=== PATIENT | female | born 1980 | race Hispanic/Latino ===

== ENCOUNTER 2017-10-23 21:10 | Emergency (ER) | payer SELFPAY, OTHER ==
[2017-10-23 21:45] LABS: Pregnancy Test - Urine (BHCG) POSITIVE (Negative); Pregu Control Background? CLEAR/WHITE (CLR/WHITE); Pregu Control Bar Appear? YES (CONTROL BAR)
[2017-10-23 21:46] LABS: Bilirubin Negative (Negative); Blood, Urine Negative (Negative); Clarity CLOUDY (Clear); Glucose, Urine (Dipstick) Negative (Negative); Leukocyte Moderate (Negative); Nitrite Negative (Negative); Protein, Urine (Dipstick) Negative (Neg-Trace); Specific Gravity, Urine 1.021 (1.002-1.036); pH, Urine 7.5 (5.0-9.0)
[2017-10-23 21:47] LABS: Specific Gravity 1.021 (1.002-1.036)
[2017-10-23 21:48] LABS: Bacteria/HPF 4+ HPF (None Seen); Hyaline Casts/LPF 0-3 HYALINE CAST LPF (0-3 Hyaline); Squamous Epithelial 0-3 HPF (0-3)
--- NOTE | 2017-10-23 23:39 | ULT ---
PELVIC ULTRASOUND: 10/23/17 HISTORY: Confirm IUP. Urinary tract infection. Cramping. No bleeding. COMPARISON: None. TECHNIQUE: Transabdominal imaging of the gravid uterus is performed. Ovaries are interrogated with tejada scale, c olor flow, doppler imaging with spectral waveform analysis. FINDINGS: The uterus is identified measuring 4.9 x 7.6 x 7.0 cm. Within the endometrium, is a gestational sac, yolk sac and pole. [place]-rump length is 0.85 cm corresponding to a gestational age of 6 weeks, 6 days. heart tones with a rate of 123 beats per minute. Left and right ovary have a normal echotexture. The left ovary measures 3.2 x 1.3 x 1.3 cm. Right ova ry measures 3.1 x 1.4 x 2.3 cm. No free fluid. OVARIAN DOPPLER: Vascular flow to both ovaries. IMPRESSION: Single uterine gestation with heart tones. Gestational age by crown-rump length is 6 weeks, 6 d ays. POS: [facility]
[2017-10-24] MEDS ORDERED: Azithromycin 250 MG TAB ONE (00:32)
[2017-10-24] MEDS ORDERED: cefTRIAXone\\ROCEPHIN 250 MG VIAL ONE (00:32)
[2017-10-24] MEDS ORDERED: Lidocaine 1% PF 5 ML VIAL ONE (00:32)
[2017-10-25 22:54] LABS: Chlamydia by PCR Not Detected (NotDetected); GC by PCR Not Detected (NotDetected)
== END 2017-10-24 01:07 | disposition home or self-care (01) ==
LOC: ERS 21:10
DX: O23.511 Infections of cervix in pregnancy, first trimester (principal); Z3A.01 Less than 8 weeks gestation of pregnancy
CPT/HCPCS: 36415; 76856; 81003; 81015; 81025; 84702; 87077; 87086; 87186; 87480; 87491; 87510; 87591; 87660; 96372; J0696; J2001

== ENCOUNTER 2018-05-22 10:27 | Day surgery (SDC) | payer SELFPAY ==
[2018-05-22 11:35] VITALS: BMI 28.9
[2018-05-22 11:36] LABS: Amnisure Test No Membranes Rupture (No Rupture)
[2018-05-22 11:37] LABS: Amnisure Internal Control QC ACCEPTABLE (ACCEPTABLE)
--- NOTE | 2018-05-22 12:28 | PDOC.LDHP ---
Labor and Delivery H&P Chief complaint: loss of fluid HPI: 38 year old at 37.0 wks presents with leaking of fluid since 09:00 AM. Patient states there was no gush of fluid, it was more of a gradual fluid loss. She is uncertain whether she has ruptured, so she came in today to be evaluated. She does endorse contractions that are irregular, but when present occur every 10-15 minutes. Contractions are rated as a 3/10. Patient denies any vaginal bleeding, vaginal discharge, or dysuria. ROS: General: Denies fever or chills HEENT: Denies headaches or scotoma Resp: Denies shortness of breath or cough Card: Denies chest pain or palpitations : Denies dysuria. Endorses urinary frequency GI: Denies constipation or diarrhea Current gestational age (weeks): 37 Due date: 06/12/18 Grav: 4 Para: 2 OB History Details: Hx of pre-eclampsia in prior on ASA, Hx of low lying placenta in this which has resolved Current complications: none Abnormal US findings: Yes (Low lying placenta which has resolved) Current medications: other (ASA) Previous surgical history: none Social history: none - Physical Exam Vital signs reviewed and normal: yes General: NAD, resting Heart: RRR Lungs: nonlabored breathing Abdomen: gravid Extremeties: no edema FHT: category 1, variability present [place] contractions every: Irregular - Vaginal Exam cm dilated: 2 Effacement: 50% Station: -3 - Assessment 38 year old at 37 wks with [place] of 06/12/2018 presents with leaking of fluid 1. Possible SROM, ruled out - Aminsure negative - Sterile speculum exam did not show any pooling of fluid, valsalva negative - Cervical check /-3, thick - NST Category I 2. Hx of Pre-E in prior - Currently on ASA therapy Dispo: Discharge home with return precautions <Karen Mccrary - Last Filed: 05/22/18 12:29> <Nina Segundo - Last Filed: 05/22/18 12:36> Allergies/Adverse Reactions: Allergies Allergy/AdvReac Type Severity Reaction Status Date / Time No Known Allergies Allergy Unverified 05/22/18 11:24 Attending Addendum - Attending Addendum Date/Time: 05/22/18 1236 I personally evaluated the patient and discussed the management with Dr. Mccrary. I agree with the History, Examination, Assessment and Plan documented above. <Nina Segundo - Last Filed: 05/22/18 12:36>
== END 2018-05-22 12:30 | disposition home or self-care (01) ==
LOC: L&D/OP 10:27
DX: Z03.71 Encounter for suspected problem with amniotic cavity and membrane ruled out (principal); Z79.82 Long term (current) use of aspirin; Z3A.37 37 weeks gestation of pregnancy
CPT/HCPCS: 84112; 87480; 87510; 87660; 99285

== ENCOUNTER 2018-05-23 01:21 | Day surgery (SDC) | payer SELFPAY ==
[2018-05-23 01:47] VITALS: BP 131/60; TEMP 98.1; BMI 28.9
--- NOTE | 2018-05-23 03:18 | PDOC.FPROB ---
FMR OB H&P: HPI - History of Present Illness Chief Complaint: contractions, vaginal pressure Indentification: History of Present Illness: 38 yo here with reported increased contractions and vaginal pressure. Started yesterday afternoon. Came to L&D yesterday for suspected loss of fluid. Was 3/-3 and amnisure negative. Was sent home and returned with aforementioned complaints. Denies LOF, VB. Endorses FM. No other complaints at this time. Primary Care Physician: Dr. Polly Flores FMR OB H&P: Current - Care : 4 Para: 2 Gestational age: 37.1 Due date: 06/12/18 Dating Criteria: 6.7wk US - OB Labs Blood type: O RH: positive Antibody Screen: negative HIV: negative RPR: negative HepBsAg: negative Rubella: immune Quad screen: unknown Urine drug screen: not done Gonorrhea: negative Chlamydia: negative - Anatomy Survey Anatomy survey: low lying placenta seen on 2nd trimester anatomy scan FMR OB H&P: History - Past Medical History PMH: none - OB History OB History: 1. 2008: preE with IOL, 2. 2013: Forceps assisted 3. 2017: SAB - Surgical History Sx History: Denies - Social History Social History: Denies tobacco, etoh, drug - Family History Family History: HTN, DM FMR OB H&P: Medications - Current Home Medications: Medication Instructions Recorded Confirmed Type Aspirin [Aspir-Low] 81 mg PO DAILY 05/22/18 05/23/18 History Allergies/Adverse Reactions: Allergies Allergy/AdvReac Type Severity Reaction Status Date / Time No Known Allergies Allergy Verified 05/23/18 01:47 FMR OB H&P: ROS - Review of Systems Eyes: denies: vision changes, double vision ENT: denies: nasal congestion, rhinorrhea, sore throat Cardiovascular: denies: chest pain, edema Respiratory: denies: cough, congestion, shortness of breath Gastrointestinal: reports: abdominal pain. denies: indigestion, bloating, nausea, vomiting Genitourinary (Female): reports: vaginal pressure. denies: dysuria, vaginal pain, vaginal bleeding Musculoskeletal: denies: stiffness, tenderness Neurologic: reports: numbness Integumentary: reports: itching, lesions Hematologic/Lymphatic: denies: prolonged or excessive bleeding Psychological: denies: depression, anxiety FMR OB H&P: Vital Signs - Maternal Vital signs: Vital Signs - First Documented Temp Pulse Resp BP Pulse Ox 98.1 F 69 18 131/60 99 05/23/18 01:41 05/23/18 01:41 05/23/18 01:41 05/23/18 01:41 05/23/18 01:41 - Heart Tones Baseline: 125 Variability: moderate Acceleration: present Category: category 1 FMR OB H&P: Physical Exam - Physical Exam General: NAD, awake, alert and oriented HEENT: normocephalic and atraumatic, PERRLA, EOMI Neck: supple, FROM Heart: RRR, normal S1/S2 General: CTAB, no respiratory distress, good air movement Abdomen: gravid Musculoskeletal: pulses present, FROM in all four extremities Skin: no rash, good tugor, capillary refill <2 seconds, no jaundice Lymphatic: no unusual bruising or bleeding, no purpura, no petechia - Pelvic Exam Vulva: normal hair distribution SVE: 50/-2 Felder score: 2 Membranes: intact FMR OB H&P: A/P - Problem List (1) Intrauterine normal Status: Acute Code(s): Z34.90 - ENCNTR FOR SUPRVSN OF NORMAL , UNSP, UNSP TRIMESTER (2) History of pre-eclampsia in prior , currently Status: Acute Code(s): O09.299 - SUPRVSN OF PREG W POOR REPRODCTV OR OBSTET HISTORY, UNSP TRI Disposition: 38 yo [id number] here for increased contractions and vaginal pressrue 1. sIUP, labor rule out -no prior h/o of PTL -SVE at 250/-3 -FHT Cat I, delicia every 5-7 min -will give po water and continue EFM -monitor for spacing out of contractions. will recheck in 2 hours. if CTX more spaced out and no cervical change made can consider sending out to home 2. H/o PreEclampsia -taking aspirin due to prior hx discussed with dr. bangura Discussion: Date/Time: 05/23/18316 This H&P was discussed with [] and [] who agree with the above documentation and plan. Attending Addendum - Attending Addendum Date/Time: 05/23/18 7229 I personally evaluated the patient and discussed the management with Dr. Salcedo I agree with the History, Examination, Assessment and Plan documented above with any addition or exceptions noted below. Pt given 6mg morphine IM for comfort. She was discharged comfortable with term precautions.
[2018-05-23] MEDS ORDERED: Morphine 10 MG/ML VIAL SLOW IVP PRN (04:37)
[2018-05-23] MEDS ORDERED: Morphine 10 MG/ML VIAL ONE (04:38)
[2018-05-23] MEDS ORDERED: Morphine 10 MG/ML VIAL IM SCH (04:45)
--- NOTE | 2018-05-23 08:03 | PDOC.EVN ---
Event Note - Event Note Event Note: Patient was still experiencing pain with contractions so was given morphine 0.6 x1. Continued to monitor and CTX spaced out to q8-9 minutes. Upon discharge patient was vitally stable and expressed feeling comfortable with going home. Was given labor precautions. <Lupis Salcedo - Last Filed: 05/23/18 08:02> Attending Addendum - Attending Addendum Date/Time: 05/25/18 0845 I personally evaluated the patient and discussed the management with Dr. Salcedo I agree with the History, Examination, Assessment and Plan documented above with any addition or exceptions noted below. Pt was given 6mg of morphine for maternal comfort. Pt discharged home with no evidence of active labor. Fetus with a CAt 1 tracing. <Refugio Patel - Last Filed: 05/25/18 08:46>
== END 2018-05-23 06:20 | disposition home or self-care (01) ==
LOC: L&D/OP 01:21
PROVIDERS: ATTEND Obstetrics & Gynecology
DX: O47.1 False labor at or after 37 completed weeks of gestation (principal); Z3A.37 37 weeks gestation of pregnancy
CPT/HCPCS: 96372; 99283; J2270

== ENCOUNTER 2018-05-25 15:22 | Inpatient (IN) | payer MEDICAID, SELFPAY ==
[2018-05-25 16:02] VITALS: BMI 28.9
--- NOTE | 2018-05-25 17:00 | PDOC.LDHP ---
Labor and Delivery H&P Chief complaint: contractions, loss of fluid HPI: 38 yo at 37.3w by LMP/6.6w sono here with contractions since Wednesday. She states that she would have them for a couple of hours then they would go away. Now they are consistently every 10 minutes. She also reports she was here Wednesday and had leakage of fluid, was told amnisure was negative and discharged. She is feeling baby move, denies vaginal bleeding but does think she passed mucus plug last night with brown discharge. Current gestational age (weeks): 37 (37.3) Due date: 06/12/18 Dating criteria: last menstrual period, first trimester ultrasound Grav: 4 Para: 2 (1112) OB History Details: H/o preE with first , on ASA this AMA - declined genetic screening H/o PTD 2/2 induction for preE, no 17-ohp indicated E. coli UTI s/p PANCHO Varicose veins Current complications: none Abnormal US findings: No (marginal early in , resolved) Current medications: pre- vitamins, other (ASA) Previous surgical history: none Social history: none - Physical Exam Vital signs reviewed and normal: yes General: resting, breathing through contractions Heart: RRR Lungs: nonlabored breathing Abdomen: gravid Extremeties: trace edema (BL to junior) FHT: category 1 - Vaginal Exam cm dilated: 3 Effacement: 75% Station: -3 - OB Labs Blood type: O RH: positive Antibody Screen: negative HIV: negative RPR: negative HEPSAg: negative 1 hour GCT: negative GBS: negative Rubella: immune - Assessment Contractions - Plan Plan: observation in L&D -: 38 yo at 37.3 by LMP/6.6w sono here with contractions and possible ROM 1. tIUP with ctx/possible SROM - Bedside sono revealed 1 pocket of approx 4 cm but no other good fluid pocket - Will check amnisure and BPP with BRENDA - Recheck in 2 hours - PO hydration - FHT 150/mod/+accels/rare variable or late decel 2. AMA - Declined genetic screening 3. H/o preE - On ASA this - No symptoms, trace edema BL and has had rare headaches on and off that self-resolve - BP 130s/80s, will continue to monitor 4. H/o delivery - Induced for preE, no 17-ohp indicated 5. Fam hx HTN, kidney stones, prostate cancer 6. E. coli UTI this preg - s/p PANCHO 7. Pap NILM, HPV neg <Polly Flores - Last Filed: 05/25/18 20:35> <Refugio Patel - Last Filed: 05/26/18 08:02> Allergies/Adverse Reactions: Allergies Allergy/AdvReac Type Severity Reaction Status Date / Time No Known Allergies Allergy Verified 05/23/18 01:47 Attending Addendum - Attending Addendum Date/Time: 05/26/18 0802 I personally evaluated the patient and discussed the management with Dr. Flores I agree with the History, Examination, Assessment and Plan documented above with any addition or exceptions noted below. <Refugio Patel - Last Filed: 05/26/18 08:02>
[2018-05-25 17:39] LABS: Amnisure Test No Membranes Rupture (No Rupture)
[2018-05-25 17:40] LABS: Amnisure Internal Control QC ACCEPTABLE (ACCEPTABLE)
[2018-05-25] MEDS ORDERED: Ondansetron HCl/PF 4 MG/2 ML Vial IVP PRN (18:48)
[2018-05-25] MEDS ORDERED: Promethazine HCl 25 MG/ML VIAL IM PRN (18:48)
[2018-05-25] MEDS ORDERED: Ibuprofen 800 MG TAB PO PRN (18:48)
[2018-05-25] MEDS ORDERED: Lidocaine 1% (PF) 30 ML VIAL SC PRN (18:48)
[2018-05-25] MEDS ORDERED: NS / Oxytocin 40 units/1000ml 1,000 ML IV PRN (18:48)
--- NOTE | 2018-05-25 18:55 | ULT ---
SONOGRAPHIC BIOPHYSICAL PROFILE EXAM: 05/25/18 HISTORY: Third trimester . Fluid leak. FINDINGS: Good tone, breathing movement, and gross movements were demonstrated. Amniotic fluid index is 3 .8. No pockets of 2 cm fluid are visible. IMPRESSION: Oligohydramnios. BRENDA 3.8. Sonographic biophysical profile score is 6/8. POS: [facility]
[2018-05-25] MEDS ORDERED: NS w/ Oxytocin 10 units 500 ML IV SCH ×2 (19:00)
[2018-05-25 19:12] LABS: Hemoglobin 12.4 g/dL (12.0-16.0); Mean Corpuscular HGB CONC 34.8 g/dL (32.0-36.0); Mean Corpuscular Hemoglobin 31.2 pg (27.0-31.0); Mean Corpuscular Volume 89.5 fL (78.0-98.0); Mean Platelet Volume 7.8 fL (7.4-10.4); Platelet Count 215 thou/uL (130-400); RBC Distribution Width 13.1 % (11.5-14.5); Red Blood Cell (RBC) Count 3.98 mill/uL (4.20-5.40)
[2018-05-25 19:52] LABS: HBSAg Index 0.22 S/CO (0-0.99); Hep B Surf Ag Non-Reactive S/CO (NonReactive); Syphilis Antibody Nonreactive (Nonreactive); Syphilis Antibody Index 0.05 S/CO (<1.00 Non-Reactive)
--- NOTE | 2018-05-25 20:08 | PDOC.LDPN ---
Labor & Delivery Progress Note - Subjective Subjective: comfortable - Objective Vital signs reviewed and normal: yes General: resting Uterine fundus: non tender Dilation: 3 Effacement: 50% (60) Station: -2 FHT: category 1 (130/mod/+accel/rare variable) [place] contractions every: 8 - Assessment (1) Oligohydramnios antepartum Code(s): O41.00X0 - OLIGOHYDRAMNIOS, UNSP TRIMESTER, NOT APPLICABLE OR UNSP Current Visit: Yes Status: Acute (2) Term Code(s): Z34.80 - ENCOUNTER FOR SUPRVSN OF NORMAL , UNSP TRIMESTER Current Visit: Yes Status: Acute (3) History of pre-eclampsia in prior , currently Code(s): O09.299 - SUPRVSN OF PREG W POOR REPRODCTV OR OBSTET HISTORY, UNSP TRI Current Visit: No Status: Acute Plan: pitocin for augmentation -: 38 yo at 37.3 by LMP/6.6w sono here with oligohydramnios and occasional variable/late decelerations 1. term IUP with oligohydramnios - will admit for contraction stress test and induction for non-reassuring NST and overall BPP of 6/10 - BRENDA 3.8 - Felder score 6, favorable 2. AMA - Declined genetic screening 3. H/o preE - On ASA this - No symptoms, trace edema BL and has had rare headaches on and off that self-resolve - BP 130s/80s, will continue to monitor 4. H/o delivery - Induced for preE, no 17-ohp indicated 5. Fam hx HTN, kidney stones, prostate cancer 6. E. coli UTI this preg - s/p PANCHO 7. Pap NILM, HPV neg
[2018-05-25] MEDS: Lactated Ringer's 1,000 ML IV SCH (20:40)
--- NOTE | 2018-05-25 22:05 | PDOC.LDPN ---
Labor & Delivery Progress Note - Subjective Subjective: painful contractions - Objective Vital signs reviewed and normal: yes General: breathing through contractions Uterine fundus: non tender Dilation: 3 Effacement: 50% Station: -3 FHT: category 2 (140/moderate/+ accels/occasional late decels) [place] contractions every: 2-4min - Assessment (1) Term Code(s): Z34.80 - ENCOUNTER FOR SUPRVSN OF NORMAL , UNSP TRIMESTER Current Visit: Yes Status: Acute (2) Oligohydramnios antepartum Code(s): O41.00X0 - OLIGOHYDRAMNIOS, UNSP TRIMESTER, NOT APPLICABLE OR UNSP Current Visit: Yes Status: Acute (3) History of pre-eclampsia in prior , currently Code(s): O09.299 - SUPRVSN OF PREG W POOR REPRODCTV OR OBSTET HISTORY, UNSP TRI Current Visit: No Status: Acute (4) Intrauterine normal Code(s): Z34.90 - ENCNTR FOR SUPRVSN OF NORMAL , UNSP, UNSP TRIMESTER Current Visit: No Status: Acute Plan: continue plan of care, pitocin for augmentation -: 38 yo at 37.3 by LMP/6.6w sono here with oligohydramnios and occasional variable/late decelerations 1. Induction for term IUP with oligohydramnios - Contraction stress test tolerated at this time, will continue induction/ augmentation with pitocin for non-reassuring NST and overall BPP of 6/10 - BRENDA 3.8 - Felder score 6, favorable - GBS neg - Marginal anterior placenta early in , resolved on most recent sono 2. AMA - Declined genetic screening 3. H/o preE - On ASA this - No symptoms, trace edema BL and has had rare headaches on and off that self-resolve - BP wnl, will continue to monitor 4. H/o delivery - Induced for preE, no 17-ohp indicated 5. Fam hx HTN, kidney stones, prostate cancer 6. E. coli UTI this preg - s/p PANCHO 7. Pap NILM, HPV neg
[2018-05-26] MEDS ORDERED: DISCONTINUE ALL PREVIOUS NARCOTICS FS SCH (00:15)
[2018-05-26] MEDS: Lactated Ringer's 1,000 ML IV SCH ×2 (00:30→11:29)
[2018-05-26] MEDS ORDERED: Fentanyl 100 MCG/2 ML VIAL ONE (00:40)
[2018-05-26] MEDS: Bupivacaine 0.5% 20 ML, fentaNYL Citrate/PF 400 MCG in Sodium Chloride 0.9% 72 ML EPIDURAL SCH ×2 (01:07→07:28)
[2018-05-26] MEDS ORDERED: Lactated Ringer's 500 ML IV PRN (01:28)
[2018-05-26] MEDS ORDERED: Ondansetron HCl/PF 4 MG/2 ML Vial IVP PRN ×2 (01:28→13:39)
[2018-05-26] MEDS ORDERED: diphenhydrAMINE 50 MG/ML VIAL IVP PRN (01:28)
[2018-05-26] MEDS ORDERED: Hydrocerin (Eucerin) Cream 120 gm Jar TOP PRN (01:28)
[2018-05-26] MEDS ORDERED: ePHEDrine/0.9% NaCl/PF SYRINGE 50 mg/10 ml SLOW IVP PRN (01:28)
[2018-05-26] MEDS ORDERED: Naloxone HCl 0.4 mg/ml Vial IVP PRN ×2 (01:28)
[2018-05-26] MEDS ORDERED: Promethazine HCl 25 MG/ML VIAL IM PRN (01:28)
[2018-05-26] MEDS ORDERED: Communication Order-Pharmacy FS SCH (01:30)
[2018-05-26] MEDS ORDERED: fentaNYL Citrate/PF 400 MCG, Bupivacaine 0.5% 20 ML in Sodium Chloride 0.9% 72 ML EPIDURAL SCH (01:30)
--- NOTE | 2018-05-26 02:24 | PDOC.LDPN ---
Labor & Delivery Progress Note - Subjective Subjective: comfortable - Objective Vital signs reviewed and normal: yes General: resting Uterine fundus: non tender Dilation: 4 Effacement: 75% (70) Station: -3 FHT: category 2 (130/mod/+rare accel/+rare late decel) [place] contractions every: 2 minutes - Assessment (1) Oligohydramnios antepartum Code(s): O41.00X0 - OLIGOHYDRAMNIOS, UNSP TRIMESTER, NOT APPLICABLE OR UNSP Current Visit: Yes Status: Acute (2) Term Code(s): Z34.80 - ENCOUNTER FOR SUPRVSN OF NORMAL , UNSP TRIMESTER Current Visit: Yes Status: Acute (3) History of pre-eclampsia in prior , currently Code(s): O09.299 - SUPRVSN OF PREG W POOR REPRODCTV OR OBSTET HISTORY, UNSP TRI Current Visit: No Status: Acute Plan: continue plan of care, pitocin for augmentation -: 38 yo at 37.4 by LMP/6.6w sono here with oligohydramnios and occasional variable/late decelerations 1. Induction for term IUP with oligohydramnios (BRENDA 3.8) - Contraction stress test tolerated, will continue induction/augmentation with pitocin for non-reassuring NST and overall BPP of 6/10 - Making cervical change, pitocin at 6 - Marginal anterior placenta early in , resolved on most recent sono - Comfortable with epidural - GBS neg 2. AMA - Declined genetic screening 3. H/o preE - On ASA this - No symptoms, trace edema BL and has had rare headaches on and off during that self-resolve - BP wnl, will continue to monitor 4. H/o delivery - Induced for preE, no 17-ohp indicated 5. Fam hx HTN, kidney stones, prostate cancer 6. E. coli UTI this preg - s/p PANCHO 7. Pap NILM, HPV neg
[2018-05-26] MEDS: Acetaminophen 325 MG TAB PO PRN ×3 (02:56→16:14)
--- NOTE | 2018-05-26 05:59 | PDOC.LDPN ---
Labor & Delivery Progress Note - Subjective Subjective: comfortable - Objective Vital signs reviewed and normal: yes General: NAD, resting Uterine fundus: non tender Dilation: 4 Effacement: 75% Station: -2 FHT: category 1, variable decelerations (early) [place] contractions every: irregular - Assessment (1) Oligohydramnios antepartum Code(s): O41.00X0 - OLIGOHYDRAMNIOS, UNSP TRIMESTER, NOT APPLICABLE OR UNSP Current Visit: Yes Status: Acute (2) Term Code(s): Z34.80 - ENCOUNTER FOR SUPRVSN OF NORMAL , UNSP TRIMESTER Current Visit: Yes Status: Acute (3) History of pre-eclampsia in prior , currently Code(s): O09.299 - SUPRVSN OF PREG W POOR REPRODCTV OR OBSTET HISTORY, UNSP TRI Current Visit: No Status: Acute (4) Intrauterine normal Code(s): Z34.90 - ENCNTR FOR SUPRVSN OF NORMAL , UNSP, UNSP TRIMESTER Current Visit: No Status: Acute Plan: continue plan of care -: 38 yo at 37.4 by LMP/6.6w sono here with oligohydramnios and occasional variable/late decelerations 1. Induction for term IUP with oligohydramnios (BRENDA 3.8) - Contraction stress test tolerated, will continue induction/augmentation with pitocin for non-reassuring NST and overall BPP of 6/10 - Has not made cervical change at last 2 checks, pitocin at 8 - Marginal anterior placenta early in , resolved on most recent sono - Comfortable with epidural - GBS neg 2. AMA - Declined genetic screening 3. H/o preE - On ASA this - No symptoms, trace edema BL and has had rare headaches on and off during that self-resolve - BP wnl, will continue to monitor 4. H/o delivery - Induced for preE, no 17-ohp indicated 5. Fam hx HTN, kidney stones, prostate cancer 6. E. coli UTI this preg - s/p PANCHO 7. Pap NILM, HPV neg <Jaiden Paredes - Last Filed: 05/26/18 05:55> Attending Addendum - Attending Addendum Date/Time: 05/26/18 0819 I personally evaluated the patient and discussed the management with Dr. Paredes I agree with the History, Examination, Assessment and Plan documented above with any addition or exceptions noted below. <Miguel Luna - Last Filed: 05/26/18 08:19>
[2018-05-26] MEDS ORDERED: Dextrose 5%-Lactated Ringers 1,000 ML IV SCH (07:30)
--- NOTE | 2018-05-26 07:48 | PRG ---
DATE OF SERVICE: 05/26/2018 HISTORY OF PRESENT ILLNESS: The patient is a 38-year-old G4, P2 female with an intrauterine pregnanc y at 37 weeks and 4 days, who was admitted for oligohydramnios and category 2 tracing for induction o f labor. The patient tolerated a contraction stress test and Pitocin was instituted. At that time, she had a cervical exam of 360, -3 station. Over the last 18 hours or so the patient has had a slow progress. She is currently 4 cm, 70% and -2 station last checked by myself at 5. The patient was OT to OP presentation confirmed by bedside ultrasound with a very anterior cervix. heart tracing has been category 2 with some periods of category 1 and most recently has developed late appearing d ecelerations in the last 45 minutes or so. Pitocin has been turned off and the patient is being rest ed for a couple hours. VITAL SIGNS: Blood pressure 102/53, heart rate of 51, temperature 98.2. GENERAL: The patient is comfortable with an epidural in place.
--- NOTE | 2018-05-26 09:31 | PDOC.LDPN ---
Labor & Delivery Progress Note - Subjective Subjective: comfortable - Objective Vital signs reviewed and normal: yes General: NAD, resting Uterine fundus: non tender SVE: 9:10 AM Dilation: 6 Effacement: 75% (80) Station: -1 FHT: category 1 [place] contractions every: Irregular Procedures: FSE, UPC IUPC placed: yes FSE placed: yes - Assessment (1) Oligohydramnios antepartum Code(s): O41.00X0 - OLIGOHYDRAMNIOS, UNSP TRIMESTER, NOT APPLICABLE OR UNSP Current Visit: Yes Status: Acute (2) Term Code(s): Z34.80 - ENCOUNTER FOR SUPRVSN OF NORMAL , UNSP TRIMESTER Current Visit: Yes Status: Acute (3) History of pre-eclampsia in prior , currently Code(s): O09.299 - SUPRVSN OF PREG W POOR REPRODCTV OR OBSTET HISTORY, UNSP TRI Current Visit: No Status: Acute (4) Intrauterine normal Code(s): Z34.90 - ENCNTR FOR SUPRVSN OF NORMAL , UNSP, UNSP TRIMESTER Current Visit: No Status: Acute Plan: continue plan of care -: 38 yo at 37.4 by LMP/6.6w sono here with oligohydramnios and occasional variable/late decelerations 1. Induction for term IUP with oligohydramnios (BRENDA 3.8) - Not tolerating pitocin. Pitocin stopped this AM due to recurrent variable decelerations. Contractions irregular. - /-1 at 9:10 AM - FSE and IUPC placed at 9:15 AM - Marginal anterior placenta early in , resolved on most recent sono - Comfortable with epidural - GBS neg - Continue close monitoring. Potential c/s has been discussed with patient. 2. AMA - Declined genetic screening 3. H/o preE - On ASA this - No symptoms, trace edema BL and has had rare headaches on and off during that self-resolve - BP wnl, will continue to monitor 4. H/o delivery - Induced for preE, no 17-ohp indicated 5. Fam hx HTN, kidney stones, prostate cancer 6. E. coli UTI this preg - s/p PANCHO 7. Pap NILM, HPV neg <Karen Mccrary - Last Filed: 05/26/18 09:31> Plan: other (Faculty Note: patient seen at bedside. Exam performed by Residemt while I was in room. Strip reviewed.) <Joe Wise - Last Filed: 05/26/18 10:26>
--- NOTE | 2018-05-26 11:51 | PDOC.LDPN ---
Labor & Delivery Progress Note - Subjective Subjective: comfortable - Objective Vital signs reviewed and normal: yes General: NAD Dilation: 8 Effacement: 90% Station: 0 FHT: category 1, early decelerations [place] contractions every: 3-4 - Assessment (1) Oligohydramnios antepartum Code(s): O41.00X0 - OLIGOHYDRAMNIOS, UNSP TRIMESTER, NOT APPLICABLE OR UNSP Current Visit: Yes Status: Acute (2) Term Code(s): Z34.80 - ENCOUNTER FOR SUPRVSN OF NORMAL , UNSP TRIMESTER Current Visit: Yes Status: Acute (3) History of pre-eclampsia in prior , currently Code(s): O09.299 - SUPRVSN OF PREG W POOR REPRODCTV OR OBSTET HISTORY, UNSP TRI Current Visit: No Status: Acute (4) Intrauterine normal Code(s): Z34.90 - ENCNTR FOR SUPRVSN OF NORMAL , UNSP, UNSP TRIMESTER Current Visit: No Status: Acute -: 38 yo at 37.4 by LMP/6.6w sono here with oligohydramnios and occasional variable/late decelerations 1. Induction for term IUP with oligohydramnios (BRENDA 3.8) - back on pitocin at about 1030 - 8/90/0 at 1145 - FSE and IUPC placed at 9:15 AM - Marginal anterior placenta early in , resolved on most recent sono - Comfortable with epidural - GBS neg - Continue close monitoring. Potential c/s has been discussed with patient. 2. AMA - Declined genetic screening 3. H/o preE - On ASA this - No symptoms, trace edema BL and has had rare headaches on and off during that self-resolve - BP wnl, will continue to monitor 4. H/o delivery - Induced for preE, no 17-ohp indicated 5. Fam hx HTN, kidney stones, prostate cancer 6. E. coli UTI this preg - s/p PANCHO 7. Pap NILM, HPV neg
--- NOTE | 2018-05-26 12:57 | PDOC.OPDEL ---
OB Operative/Delivery Note Delivery Dr/Surgeon: Hermann/Frandy (Dr Brian nance to [facility] [address] for delivery;I was with other Pt) Assist: none Pre-Delivery Diagnosis: active labor Procedure/Post Delivery Dx: spontaneous vaginal delivery Weeks gestation: 37 (4 days) Anesthesia: epidural - Findings A Sex: female - Additional Findings/Plan Placenta delivered: spontaneous Repaired Obstetrical Laceration: 1st degree (first degree midline repaired with 3-o vicryl by Dr Mccrary as it was slightly oozing.) Estimated blood loss: Quant EBL pending, but estimated amount less than 200ml Compilations/Other Findings: no NC Baby vigorous Delivery was at 1247 with placenta at approx 1252 Counts correct GAS and placenta sent for admission concern for oligo per prior OBGYN check out to me Post delivery plan: routine recovery
--- NOTE | 2018-05-26 13:11 | PDOC.EVN ---
Event Note - Event Note Event Note: Umbilical cord blood gas called in at 13:05 pH 7.30 pCO2 52.6 Bicarb 25.3 BE -2.2 Karen Mccrary DO PGY-2
[2018-05-26 13:18] LABS: Actual Bicarbonate (HCO3a) 25.3 mEq/L (22-28); Analyzer IN Cardio OR; Base Excess (BEa) -2.2 mEq/L (-2.0 to +3.0)
[2018-05-26] MEDS ORDERED: Lanolin Ointment 7 GM TUBE TOP PRN (13:39)
[2018-05-26] MEDS ORDERED: NS / Oxytocin 40 units/1000ml 1,000 ML IV SCH (13:39)
[2018-05-26] MEDS ORDERED: Milk Of Magnesia 30 ML UDCUP PO PRN (13:39)
[2018-05-26] MEDS ORDERED: Bisacodyl 10 MG SUPP PR PRN (13:39)
[2018-05-26] MEDS ORDERED: Boudreaux's Butt Paste 16% Oin 30 GM TUBE TOP PRN (13:50)
[2018-05-26] MEDS ORDERED: Recombivax (HEP-B) 5 MCG/0.5 ML VIAL IM ONE (13:50)
[2018-05-26] MEDS ORDERED: Phytonadione Neonatal 1 MG/0.5 ML AMP IM SCH (14:00)
[2018-05-26] MEDS ORDERED: Erythromycin Base 0.5% Oint 1 GM TUBE EA EYE SCH (14:00)
[2018-05-26] MEDS: Ibuprofen 800 MG TAB PO SCH ×2 (15:20→21:06)
[2018-05-26] MEDS ORDERED: Adacel (T-DAP) 0.5 ML VIAL IM ONE (16:24)
[2018-05-26] MEDS: Ferrous Sulfate 325 MG TAB PO SCH (17:18)
[2018-05-26] MEDS: Docusate Calcium (SURFAK) 240 MG CAP PO SCH (21:06)
[2018-05-27] MEDS: HYDROcodone/Acetaminophen 5/325 mg Tablet PO PRN ×5 (01:01→23:47)
[2018-05-27] MEDS: Ibuprofen 800 MG TAB PO SCH ×3 (05:21→22:04)
[2018-05-27 05:39] LABS: Hemoglobin 10.6 g/dL (12.0-16.0); Mean Corpuscular HGB CONC 34.8 g/dL (32.0-36.0); Mean Corpuscular Hemoglobin 31.4 pg (27.0-31.0); Mean Corpuscular Volume 90.2 fL (78.0-98.0); Mean Platelet Volume 8.1 fL (7.4-10.4); Platelet Count 154 thou/uL (130-400); RBC Distribution Width 13.1 % (11.5-14.5); Red Blood Cell (RBC) Count 3.37 mill/uL (4.20-5.40); White Blood Cell (WBC) Count 7.7 thou/uL (4.8-10.8)
--- NOTE | 2018-05-27 06:30 | PDOC.PP ---
Post Progress Note Post Day #: 1 Subjective: requesting to go home after 24 hrs of observation (today after 1 pm) PO intake tolerated: yes Flatus: yes Ambulation: yes Vital Signs (12 hours) Temp Pulse Resp BP 05/27/18 00:50 98.1 F 56 L 18 132/68 05/26/18 20:55 98.4 F 61 18 98/53 L Weight Weight 158 lb - Physical Examination General: NAD Cardiovascular: no m/r/g Respiratory: clear to auscultation bilaterally Abdominal: + bowel sounds Extremities: negative homans (B) Result Diagrams: 05/27/18 05:13 Additional Labs: Post Labs Blood Type O POSITIVE 05/25/18 19:03 Hep Bs Antigen Non-Reactive S/CO (NonReactive) 05/25/18 19:04 (1) Vaginal delivery Code(s): O80 - ENCOUNTER FOR FULL-TERM UNCOMPLICATED DELIVERY Status: Acute - Assessment/Plan Doing well, PP day 1 today. Exam benign. I have dictated a discharge summary for her hospital course. [facility] in chart. Home at 1600 today per patient request. I have notified her RN to notify
[2018-05-27] MEDS: Ferrous Sulfate 325 MG TAB PO SCH ×2 (08:22→15:37)
[2018-05-27] MEDS ORDERED: Adacel (T-DAP) 0.5 ML VIAL IM ONE (09:00)
[2018-05-27] MEDS: Docusate Calcium (SURFAK) 240 MG CAP PO SCH ×2 (09:07→22:04)
[2018-05-27] MEDS: Prenatal Vitamin 1 TAB PO SCH (09:07)
[2018-05-27] MEDS ORDERED: Bupivacaine/Epinephrine 0.25% 30 ML VIAL ONE (12:34)
[2018-05-28] MEDS: Ibuprofen 800 MG TAB PO SCH ×2 (05:39→13:37)
[2018-05-28] MEDS: HYDROcodone/Acetaminophen 5/325 mg Tablet PO PRN (07:39)
[2018-05-28] MEDS: Ferrous Sulfate 325 MG TAB PO SCH ×2 (07:46→07:47)
[2018-05-28 09:09] VITALS: BP 111/54; TEMP 97.9
[2018-05-28] MEDS: Prenatal Vitamin 1 TAB PO SCH (09:28)
[2018-05-28] MEDS: Docusate Calcium (SURFAK) 240 MG CAP PO SCH (09:28)
--- NOTE | 2018-05-28 09:42 | PDOC.PP ---
Post Progress Note Subjective: Doing well this AM. No significant overnight events. Tolerating PO. Ambulating. PO intake tolerated: yes Flatus: yes Ambulation: yes Vital Signs (12 hours) Temp Pulse Resp BP 05/28/18 08:22 97.9 F 74 20 111/54 L Weight Weight 71.668 kg - Physical Examination General: NAD Cardiovascular: no m/r/g Respiratory: clear to auscultation bilaterally Abdominal: + bowel sounds, lochia (minimal), no distention, appropriately TTP Skin: no rash Neurological: no gross focal deficits Psychiatric: A&Ox3, normal affect Result Diagrams: 05/27/18 05:13 Additional Labs: Post Labs Blood Type O POSITIVE 05/25/18 19:03 Hep Bs Antigen Non-Reactive S/CO (NonReactive) 05/25/18 19:04 (1) Vaginal delivery Code(s): O80 - ENCOUNTER FOR FULL-TERM UNCOMPLICATED DELIVERY Status: Acute (2) Perineal laceration Code(s): S31.41XA - LACERATION W/O FOREIGN BODY OF VAGINA AND VULVA, INIT ENCNTR Status: Acute - Assessment/Plan Patient doing well. Routine and uncomplicated PP course. Plan for d/c home today. Follow up at [facility] in 2 weeks.
== END 2018-05-28 15:10 | disposition home or self-care (01) | DRG 775 ==
LOC: L&D/OP 15:22 → L&D 19:37 → 3SW 05-26 14:34
PROVIDERS: ADMIT Obstetrics & Gynecology; ATTEND Obstetrics & Gynecology
PROC: 3E033VJ Introduction of Other Hormone into Peripheral Vein, Percutaneous Approach (ICD-10-PCS; 2018-05-26)
PROC: 10E0XZZ Delivery of Products of Conception, External Approach (ICD-10-PCS; principal; 2018-05-28)
PROC: 0HQ9XZZ Repair Perineum Skin, External Approach (ICD-10-PCS; 2018-05-28)
DX: O41.00X0 Oligohydramnios, unspecified trimester, not applicable or unspecified (principal); Z37.0 Single live birth; Z3A.37 37 weeks gestation of pregnancy; O76 Abnormality in fetal heart rate and rhythm complicating labor and delivery; O70.0 First degree perineal laceration during delivery; Z82.49 Family history of ischemic heart disease and other diseases of the circulatory system
CPT/HCPCS: 36415; 51702; 76815; 76819; 82805; 84112; 85027; 86780; 86850; 86900; 86901; 87340; 99285; J2001; J2405; J3010; J3490; J7050

== ENCOUNTER 2022-05-28 09:19 | Outpatient (CLI) | payer OTHER | END 2022-05-28 09:20 | disposition home or self-care (01) | LOC: BICULT 09:19 | PROVIDERS: ATTEND Family Medicine | DX: O09.522 Supervision of elderly multigravida, second trimester (principal); Z3A.20 20 weeks gestation of pregnancy | CPT/HCPCS: 76805 ==